=== PATIENT | male | born 2000 | race African-American/Black ===

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

== ENCOUNTER 2019-06-18 06:51 | Emergency (ER) | payer OTHER, SELFPAY ==
--- NOTE | 2019-06-18 07:38 | RAD ---
EXAM: 3 views of the right hand COMPARISON: None HISTORY: Hand pain after fall FINDINGS: 3 views of the hand shows a fracture of the base of the fifth metacarpal. This fracture is intra-articular. No degenerative changes are seen. Mild soft tissue swelling is present. IMPRESSION: Right fifth metacarpal base fracture
[2019-06-18] MEDS ORDERED: Ibuprofen 800 MG TAB ONE (08:30)
== END 2019-06-18 08:36 | disposition home or self-care (01) ==
LOC: ERS 06:51
DX: S62.316A Displaced fracture of base of fifth metacarpal bone, right hand, initial encounter for closed fracture (principal); F17.210 Nicotine dependence, cigarettes, uncomplicated; Z79.899 Other long term (current) drug therapy; W10.9XXA Fall (on) (from) unspecified stairs and steps, initial encounter
CPT/HCPCS: 29125